=== PATIENT | male | born 1950 | race Hispanic/Latino ===

== ENCOUNTER 2017-06-17 08:41 | Outpatient (CLI) | payer MEDICARE ==
--- NOTE | 2017-06-17 09:35 | XRay Report ---
XRAY BILATERAL KNEE THREE VIEWS EACH: 06/17/17 08:41:00 CLINICAL: Bilateral knee pain. No comparison. FINDINGS: Right: Status post total knee replacement with normal appearance of the prosthesis. The patella is fragmented on the sunrise view but I assume this is not clinically significant. No other fracture. No joint effusion. Normal soft tissues. Normal soft tissues. Left: Status post total knee replacement. Normal alignment and normal appearance of the femoral prosthesis. There is an irregular horizontal lucency in the proximal medial tibia which interrupts the medial cortex. No joint effusion. The soft tissues are normal. IMPRESSION: 1. A horizontal fracture of the medial proximal left tibia which is of uncertain age. 2. Status post left total knee replacement with no apparent loosening of the prosthesis. 3. Normal right knee status post total knee replacement.
== END 2017-06-17 08:42 | disposition home or self-care (01) ==
LOC: SPVIMAG 08:41
PROVIDERS: ATTEND Orthopaedic Surgery Sports Medicine
DX: M25.561 Pain in right knee (principal); M25.562 Pain in left knee; Z96.653 Presence of artificial knee joint, bilateral

== ENCOUNTER 2017-09-25 14:06 | Outpatient (CLI) | payer MEDICARE ==
--- NOTE | 2017-09-25 17:39 | XRay Report ---
FINAL REPORT EXAM: XR SHOULDER BILAT 2+V HISTORY: BILATERAL SHOULDER PAIN TECHNIQUE: Bilateral shoulders four views PRIORS: None. FINDINGS: At the right shoulder there is marked narrowing at the subacromial joint space with superior migration of the humerus. There are subchondral degenerative sclerotic appearing changes with degenerative change at the AC joint with osteophyte and joint space narrowing. At the left shoulder no fracture or dislocation identified. There is some degenerative change at the AC joint with osteophytes and joint space narrowing. IMPRESSION: Degenerative type changes at the right shoulder joint likely reflecting chronic rotator cuff pathology AC joint degenerative changes bilaterally
== END 2017-09-25 14:07 | disposition home or self-care (01) ==
LOC: SPVIMAG 14:06
PROVIDERS: ATTEND Orthopaedic Surgery Sports Medicine
DX: M19.011 Primary osteoarthritis, right shoulder (principal); M19.012 Primary osteoarthritis, left shoulder